=== PATIENT | female | born 1975 | race Caucasian/White ===

== ENCOUNTER 2018-03-17 17:27 | Emergency (ER) | payer MEDICAID, OTHER ==
[~2018-03-17] VITALS: Ht 167.6 cm; Wt 85.2 kg
[2018-03-17 18:10] LABS: BASOPHILS % (AUTO) 0.4 % (0-1); EOSINOPHILS # (AUTO) 0.5 X10'3 (0-0.9); EOSINOPHILS % (AUTO) 5.7 % (0-6); HEMATOCRIT 41.5 % (35.0-45.0); HEMOGLOBIN 13.9 g/dl (12.0-16.0); LYMPHOCYTES # (AUTO) 3.3 X10'3 (1.1-4.8); LYMPHOCYTES % (AUTO) 39.5 % (21-51); MEAN CORPUSCULAR HEMOGLOBIN 30.6 PG (27.0-31.0); MEAN CORPUSCULAR HGB CONC 33.6 % (33.0-36.5); MEAN CORPUSCULAR VOLUME 91.1 FL (78-98); MONOCYTES # (AUTO) 0.6 X10'3 (0-0.9); MONOCYTES % (AUTO) 7.4 % (2-12); NEUTROPHILS # (AUTO) 3.9 X10'3 (1.8-7.7); PLATELET COUNT 334 X10'3 (140-440); RED BLOOD COUNT 4.55 X10'6 (4.20-5.60); RED CELL DISTRIBUTION WIDTH 12.6 % (11.5-14.5); WHITE BLOOD COUNT 8.4 X10'3 (4.5-11.0)
[2018-03-17 18:21] LABS: PARTIAL THROMBOPLASTIN TIME 27 SECONDS (22-32); PROTHROMBIN TIME 9.9 SECONDS (9.0-12.0)
[2018-03-17 18:30] LABS: ALANINE AMINOTRANSFERASE 19 U/L (12-78); ALBUMIN 4.1 G/DL (3.4-5.0); ALBUMIN/GLOBULIN RATIO 1.3 (1.1-1.5); ALKALINE PHOSPHATASE 77 IU/L (46-116); ANION GAP 7 (8-16); ASPARTATE AMINO TRANSFERASE 11 U/L (10-37); BILIRUBIN,TOTAL 0.4 MG/DL (0.1-1.0); BLOOD UREA NITROGEN 18 MG/DL (7-18); BUN/CREATININE RATIO 20.9 (6.6-38.0); CALCIUM 8.9 MG/DL (8.5-10.1); CHLORIDE 101 MMOL/L (99-107); CREATININE 0.86 MG/DL (0.40-0.90); GLUCOSE 94 MG/DL (70-104); POTASSIUM 3.6 MMOL/L (3.5-5.1); SODIUM 140 MMOL/L (135-145); TOTAL CARBON DIOXIDE 31.8 MMOL/L (24-32); TOTAL PROTEIN 7.3 G/DL (6.4-8.2); eGFR 73 ML/MIN
[2018-03-17 19:39] VITALS: BP 122/68
[2018-03-17] MEDS ORDERED: FAMO40TA73 PO (20:10)
[2018-03-17] MEDS ORDERED: mag hydrox/Alum hydrox/simeth 30ml oral suspension PO ONE (20:10)
[2018-03-17] MEDS ORDERED: LIDOcaine Viscous 15ml cup PO ONE (20:10)
[2018-03-17] MEDS ORDERED: famotidine 20mg tablet PO ONE (20:10)
[2018-03-17] MEDS ORDERED: sucralfate 1 gm tablet PO ONE (20:10)
== END 2018-03-17 20:46 | disposition home or self-care (01) ==
LOC: ER 17:28
DX: R10.13 Epigastric pain (principal); E03.9 Hypothyroidism, unspecified; Z79.899 Other long term (current) drug therapy
CPT/HCPCS: 36415; 71045; 80053; 84484; 85025; 85610; 85730; 93005; 99285

== ENCOUNTER 2023-01-10 13:57 | Emergency (ER) | payer OTHER, SELFPAY ==
[~2023-01-10] VITALS: Ht 167.6 cm; Wt 84.1 kg
[~2023-01-10 13:57] MED LIST: FAMO40TA73 PO
[2023-01-10 14:19] VITALS: BP 134/95
[2023-01-10] MEDS ORDERED: LIDO-12 TP (15:12)
[2023-01-10] MEDS ORDERED: CYCL-1 PO (15:12)
[2023-01-10] MEDS ORDERED: IBUP-1986 PO (15:12)
[2023-01-10] MEDS ORDERED: LIDOcaine 5% patch TP STA (15:13)
[2023-01-10] MEDS ORDERED: ketorolac tromethamine 15mg/ml inj. IM ONE (15:15)
== END 2023-01-10 15:30 | disposition home or self-care (01) ==
LOC: ER 13:57
DX: S33.8XXA Sprain of other parts of lumbar spine and pelvis, initial encounter (principal); E03.9 Hypothyroidism, unspecified; X58.XXXA Exposure to other specified factors, initial encounter; Y93.89 Activity, other specified; Y92.89 Other specified places as the place of occurrence of the external cause; Y99.8 Other external cause status; Z79.899 Other long term (current) drug therapy
CPT/HCPCS: 96372; 99283; J1885